=== PATIENT | male | born 1985 | race Two or more races ===

== ENCOUNTER 2018-02-16 11:19 | Emergency (ER) | payer SELFPAY ==
[~2018-02-16] VITALS: Ht 167.6 cm; Wt 52.9 kg
[~2018-02-16 11:19] MED LIST: METHADOSE10 MG PO
[2018-02-16 11:28] VITALS: BP 128/78
== END 2018-02-16 15:16 | disposition left against medical advice (07) ==
LOC: EME 11:19
DX: S02.612A Fracture of condylar process of left mandible, initial encounter for closed fracture (principal); S00.83XA Contusion of other part of head, initial encounter; Y04.0XXA Assault by unarmed brawl or fight, initial encounter; G89.29 Other chronic pain; Z88.6 Allergy status to analgesic agent; F17.200 Nicotine dependence, unspecified, uncomplicated
CPT/HCPCS: 70110; 70450; 70486; 99281; 99284